=== PATIENT | male | born 1980 | race Caucasian/White ===

== ENCOUNTER 2023-02-14 11:03 | Inpatient (IN) | payer OTHER ==
[2023-02-14 11:29] VITALS: BMI 26.3
[2023-02-14] MEDS ORDERED: LOPERAMIDE HCL 2 MG CAPSULE PO PRN (12:15)
[2023-02-14] MEDS ORDERED: ACETAMINOPHEN 325 MG TABLET (FP) PO PRN (12:15)
[2023-02-14] MEDS ORDERED: chlordiazePOXIDE HCL 25 MG CAPSULE PO PRN (12:15)
[2023-02-14] MEDS ORDERED: ONDANSETRON *ODT* 4 MG TABLET SL PRN (12:15)
[2023-02-14] MEDS ORDERED: IBUPROFEN 400 MG TABLET (FP) PO PRN (12:15)
[2023-02-14] MEDS ORDERED: NALOXONE HCL (KLOXXADO) 8 MG SPRAY NS PRN (12:15)
[2023-02-14] MEDS ORDERED: BISMUTH SUBSALICYLATE 524 MG/30 ML PO PRN (12:15)
[2023-02-14] MEDS ORDERED: MAGNESIUM HYDROX 2400MG/30ML ORAL SUSPENSION 30 ML CUP PO PRN (12:15)
[2023-02-14] MEDS ORDERED: POLYETHYLENE GLYCOL (HEALTHYLAX) 3350 17 GM PACKET PO PRN (12:15)
[2023-02-14] MEDS ORDERED: IBUPROFEN 600 MG TABLET (FP) PO PRN (12:15)
[2023-02-14] MEDS ORDERED: BENZOCAINE/MENTHOL (CHLORASEPTIC ) LOZENGE MM PRN (12:15)
[2023-02-14] MEDS ORDERED: BENZONATATE 200 MG CAPSULE PO PRN (12:15)
[2023-02-14] MEDS ORDERED: NALOXONE HCL 0.4 MG/ML VIAL IM PRN (12:15)
[2023-02-14] MEDS ORDERED: MAG HYDROX/AL HYDROX/SIMETH 30 ML UNIT-DOSE CUP PO PRN (12:15)
[2023-02-14] MEDS ORDERED: guaiFENesin 600 MG TABLET.ER (FP) PO PRN (12:15)
[2023-02-14] MEDS: PRENATAL VITAMINS W/ FOLIC ACID TABLET (FP) PO SCH (13:16)
[2023-02-14] MEDS: chlordiazePOXIDE HCL 25 MG CAPSULE PO SCH ×2 (17:20→22:22)
[2023-02-14] MEDS: DICYCLOMINE HCL 10 MG CAPSULE PO PRN (17:23)
[2023-02-14] MEDS: NICOTINE POLACRILEX 4 MG GUM BUC PRN (18:29)
[2023-02-14] MEDS: hydrOXYzine PAMOATE 25 MG CAPSULE (FP) PO PRN (19:50)
[2023-02-14] MEDS ORDERED: METOPROLOL TARTRATE 25 MG TABLET (FP) PO ONE (21:01)
[2023-02-14] MEDS: THIAMINE HCL 100 MG TABLET (FP) PO SCH (22:22)
[2023-02-14] MEDS: MELATONIN 5 MG TABLETS PO SCH (22:24)
[2023-02-15] MEDS: chlordiazePOXIDE HCL 25 MG CAPSULE PO SCH ×4 (04:13→22:09)
[2023-02-15] MEDS: hydrOXYzine PAMOATE 25 MG CAPSULE (FP) PO PRN ×3 (04:14→20:40)
[2023-02-15] MEDS: METHOCARBAMOL 500 MG TABLET PO PRN ×2 (04:14→20:40)
[2023-02-15] MEDS: DICYCLOMINE HCL 10 MG CAPSULE PO PRN (07:50)
[2023-02-15 09:41] LABS: POTASSIUM 4.2 mmol/L (3.5-5.1)
[2023-02-15 09:47] LABS: HEMATOCRIT 47.8 % (35.4-49); HEMOGLOBIN 15.9 GM/dL (11.7-16.9); MCH 29.9 pg (25.7-33.7); MCHC 33.3 g/dl (32.0-35.9); MEAN CELL VOLUME 89.7 fl (80-96); MEAN PLT VOLUME 9.3 fl (7.5-11.1); PLATELET COUNT 267 10^3/uL (134-434); RBC 5.33 M/mm3 (4.00-5.60); RDW 13.7 % (11.9-15.9); WHITE BLOOD COUNT 5.5 K/mm3 (4.0-10.0)
[2023-02-15 10:00] LABS: CALCIUM 8.4 mg/dL (8.5-10.1)
[2023-02-15 10:01] LABS: ALBUMIN 3.9 g/dl (3.4-5.0); BLOOD UREA NITROGEN 15.3 mg/dL (7-18)
[2023-02-15 10:03] LABS: CREATININE 0.8 mg/dL (0.55-1.3)
[2023-02-15 10:05] LABS: BILIRUBIN,TOTAL 0.2 mg/dL (0.2-1); TOT PROT 7.8 g/dl (6.4-8.2)
[2023-02-15] MEDS: PRENATAL VITAMINS W/ FOLIC ACID TABLET (FP) PO SCH (10:08)
[2023-02-15] MEDS: NICOTINE POLACRILEX 4 MG GUM BUC PRN ×2 (10:11→20:41)
[2023-02-15] MEDS: ARIPiprazole 10 MG TABLET PO SCH (12:14)
[2023-02-15] MEDS: THIAMINE HCL 100 MG TABLET (FP) PO SCH (22:10)
[2023-02-15] MEDS: MELATONIN 5 MG TABLETS PO SCH (22:10)
[2023-02-15] MEDS ORDERED: cloNIDine HCL 0.1 MG TABLET PO ONE (23:53)
[2023-02-16] MEDS: chlordiazePOXIDE HCL 25 MG CAPSULE PO SCH ×4 (04:57→22:21)
[2023-02-16] MEDS: METHOCARBAMOL 500 MG TABLET PO PRN ×2 (04:57→17:35)
[2023-02-16] MEDS: hydrOXYzine PAMOATE 25 MG CAPSULE (FP) PO PRN ×3 (04:57→22:21)
[2023-02-16] MEDS: ARIPiprazole 10 MG TABLET PO SCH (10:22)
[2023-02-16] MEDS: PRENATAL VITAMINS W/ FOLIC ACID TABLET (FP) PO SCH (10:22)
[2023-02-16] MEDS: NICOTINE POLACRILEX 4 MG GUM BUC PRN ×2 (10:28→19:10)
[2023-02-16] MEDS: amLODIPine BESYLATE 5 MG TABLET (FP) PO SCH (12:53)
[2023-02-16] MEDS ORDERED: LISINOPRIL 5 MG TABLET PO ONE (13:24)
[2023-02-16] MEDS: THIAMINE HCL 100 MG TABLET (FP) PO SCH (22:21)
[2023-02-16] MEDS: MELATONIN 5 MG TABLETS PO SCH (22:21)
[2023-02-17] MEDS ORDERED: chlordiazePOXIDE HCL 10 MG CAPSULE PO PRN
[2023-02-17] MEDS: chlordiazePOXIDE HCL 10 MG CAPSULE PO SCH ×4 (05:45→22:04)
[2023-02-17] MEDS: NICOTINE POLACRILEX 4 MG GUM BUC PRN ×3 (07:37→16:01)
[2023-02-17] MEDS ORDERED: chlordiazePOXIDE 5 MG CAPSULE ONE (09:46)
[2023-02-17] MEDS: ARIPiprazole 10 MG TABLET PO SCH (10:06)
[2023-02-17] MEDS: amLODIPine BESYLATE 5 MG TABLET (FP) PO SCH (10:06)
[2023-02-17] MEDS: PRENATAL VITAMINS W/ FOLIC ACID TABLET (FP) PO SCH (10:06)
[2023-02-17] MEDS: METHOCARBAMOL 500 MG TABLET PO PRN ×2 (10:08→17:10)
[2023-02-17] MEDS: hydrOXYzine PAMOATE 25 MG CAPSULE (FP) PO PRN ×2 (10:08→17:10)
[2023-02-17] MEDS: THIAMINE HCL 100 MG TABLET (FP) PO SCH (22:04)
[2023-02-17] MEDS: MELATONIN 5 MG TABLETS PO SCH (22:04)
[2023-02-18] MEDS: chlordiazePOXIDE HCL 10 MG CAPSULE PO SCH ×2 (05:56→17:25)
[2023-02-18] MEDS: PRENATAL VITAMINS W/ FOLIC ACID TABLET (FP) PO SCH (10:01)
[2023-02-18] MEDS: ARIPiprazole 10 MG TABLET PO SCH (10:06)
[2023-02-18] MEDS: METHOCARBAMOL 500 MG TABLET PO PRN ×2 (10:06→22:15)
[2023-02-18] MEDS: amLODIPine BESYLATE 10 MG TABLET (FP) PO SCH (10:06)
[2023-02-18] MEDS: hydrOXYzine PAMOATE 25 MG CAPSULE (FP) PO PRN ×3 (10:06→22:14)
[2023-02-18] MEDS: NICOTINE POLACRILEX 4 MG GUM BUC PRN ×3 (10:08→18:52)
[2023-02-18] MEDS: THIAMINE HCL 100 MG TABLET (FP) PO SCH (22:15)
[2023-02-18] MEDS: MELATONIN 5 MG TABLETS PO SCH (22:15)
[2023-02-19] MEDS: hydrOXYzine PAMOATE 25 MG CAPSULE (FP) PO PRN (04:56)
[2023-02-19] MEDS: METHOCARBAMOL 500 MG TABLET PO PRN (04:56)
[2023-02-19] MEDS ORDERED: chlordiazePOXIDE HCL 10 MG CAPSULE PO ONE (05:00)
[2023-02-19 08:58] VITALS: RESP 18; TEMP 97.3
[2023-02-19] MEDS: amLODIPine BESYLATE 10 MG TABLET (FP) PO SCH (09:08)
[2023-02-19] MEDS: PRENATAL VITAMINS W/ FOLIC ACID TABLET (FP) PO SCH (09:08)
[2023-02-19] MEDS: ARIPiprazole 10 MG TABLET PO SCH (09:08)
[2023-02-19 09:14] VITALS: BP 151/111; PULSE 96
== END 2023-02-19 09:13 | disposition home or self-care (01) | DRG 775 ==
LOC: YASAS 11:03 → Y6N 12:38
PROVIDERS: ADMIT Allergy & Immunology; ATTEND Surgery
PROC: HZ2ZZZZ Detoxification Services for Substance Abuse Treatment (ICD-10-PCS; principal; 2023-02-14)
DX: F10.230 Alcohol dependence with withdrawal, uncomplicated (principal); F13.230 Sedative, hypnotic or anxiolytic dependence with withdrawal, uncomplicated; F17.210 Nicotine dependence, cigarettes, uncomplicated; F25.9 Schizoaffective disorder, unspecified; F31.9 Bipolar disorder, unspecified; I10 Essential (primary) hypertension; Z91.51 Personal history of suicidal behavior
CPT/HCPCS: 36415; 80053; 80307; 85027; 86780; 87635; 87811; Q0162